=== PATIENT | female | born 1965 | race Asian ===

== ENCOUNTER 2025-04-16 18:36 | Emergency (ER) | payer SELFPAY ==
[~2025-04-16] VITALS: Ht 167.6 cm; Wt 90.0 kg
[2025-04-16 18:38] VITALS: O2SAT 99
[2025-04-16] MEDS: DIPHENHYDRAMINE 50MG/ML VIAL IV ONE (20:01)
[2025-04-16] MEDS: SODIUM CHLORIDE 0.9% 1,000 ML IV ONE (20:01)
[2025-04-16 20:04] LABS: BASOPHILS % 0.6 % (0.0-2.0); EOSINOPHILS % 0.2 % (0.0-5.0); HEMATOCRIT. 43.5 % (36.0-48.0); HEMOGLOBIN. 14.4 g/dL (12.0-16.0); LYMPHOCYTES % 7.9 % (20.0-50.0); MEAN PLATELET VOLUME 8.3 fl (7.4-10.4); MONOCYTES % 2.5 % (2.0-8.0); NEUTROPHILS % 88.8 % (40.0-76.0); PLATELET 256 x1000/uL (130-400); RED BLOOD CELL COUNT 4.84 mill/uL (4.2-5.4); RED CELL DISTRIBUTION WIDTH 13.6 % (11.6-14.6)
[2025-04-16] MEDS: PROCHLORPERAZINE 10MG/2ML VIAL IV ONE (20:05)
[2025-04-16 20:19] LABS: CREATININE 1.0 mg/dL (0.6-1.0); ETHANOL BLOOD < 10 mg/dL (<10); UREA NITROGEN BLOOD 14 mg/dL (9-23)
[2025-04-16 20:21] LABS: ASPARTATE AMINOTRANSFERASE 36 IU/L (<34); BILIRUBIN DIRECT 0.2 mg/dL (<=3.0); BILIRUBIN TOTAL 0.7 mg/dL (0.1-1.0); PROTEIN TOTAL 7.9 g/dL (6.0-8.3)
[2025-04-16 23:00] VITALS: BP 121/63; PULSE 61; RESP 12; TEMP 36.9; O2SAT 97
== END 2025-04-16 23:15 | disposition home or self-care (01) ==
LOC: ER 18:36
DX: G43.909 Migraine, unspecified, not intractable, without status migrainosus (principal); I10 Essential (primary) hypertension
CPT/HCPCS: 80076; 80048; 80320; 85025; 36415; 70450; 96361; 96374; 96375; 99285; J1200; J0780; J7030; Z7610; G0480